=== PATIENT | female | born 1990 | race Caucasian/White ===

== ENCOUNTER 2017-08-04 16:47 | Emergency (ER) | payer SELFPAY ==
--- NOTE | 2017-08-04 17:37 | ER Document Report ---
ED Psych Disorder / Suicide - General Chief Complaint: Psych Problem Stated Complaint: PSYCH EVAL Time Seen by Provider: 08/04/17 17:35 Notes: The patient is a 27-year-old female, past medical history depression, IV heroin abuser, presents on an IVC filled out by her parents. IVC states that patient would rather than stop abusing drugs. Patient denies current SI or HI. She says that her parents are trying to keep her in [place], even though she is a plane ticket to [place] in a few days for her to begin a new life. Patient denies difficulty breathing, nausea, vomiting, fevers, chest pain, shortness of breath, back pain or headache. TRAVEL OUTSIDE OF THE [place] IN LAST 30 DAYS: No - Related Data Allergies/Adverse Reactions: No Known Allergies Allergy (Unverified 03/16/11 11:05) Past Medical History - General Information source: Patient, Law Enforcement - Social History Smoking Status: Current Every Day Smoker Frequency of alcohol use: None Drug Abuse: Heroin, Prescription drugs Family History: Reviewed & Not Pertinent Pulmonary Medical History: Reports: Hx Asthma Denies: Hx Tuberculosis Past Surgical History: Denies: Hx Appendectomy, Hx Bowel Surgery, Hx Section, Hx Cholecystectomy, Hx Coronary Artery Bypass Graft, Hx Gastric Bypass Surgery, Hx Herniorrhaphy, Hx Hysterectomy, Hx Mastectomy, Hx Pacemaker, Hx Tonsillectomy, Hx Tubal Ligation - Immunizations Hx Diphtheria, Pertussis, Tetanus Vaccination: Yes Review of Systems - Review of Systems Notes: REVIEW OF SYSTEMS: CONSTITUTIONAL: -fevers, -chills EENT: -eye pain, -difficulty swallowing, -nasal congestion CARDIOVASCULAR: -chest pain, -syncope. RESPIRATORY: -cough, -SOB GASTROINTESTINAL: -abdominal pain, -nausea, -vomiting, -diarrhea GENITOURINARY: -dysuria, -hematuria MUSCULOSKELETAL: -back pain, -neck pain SKIN: -rash or skin lesions. HEMATOLOGIC: -easy bruising or bleeding. LYMPHATIC: -swollen, enlarged glands. NEUROLOGICAL: -altered mental status or loss of consciousness, -headache, - neurologic symptoms PSYCHIATRIC: -anxiety, +depression, +drug abuse ALL OTHER SYSTEMS REVIEWED AND NEGATIVE. Physical Exam - Vital signs Vitals: Temp Pulse Resp BP Pulse Ox 98.4 F 85 18 93/55 L 99 08/04/17 18:01 08/04/17 18:01 08/04/17 18:01 08/04/17 18:01 08/04/17 18:01 - Notes Notes: PHYSICAL EXAMINATION: GENERAL: Well-appearing, well-nourished and in no acute distress. Dog at bedside. HEAD: Atraumatic, normocephalic. EYES: Pupils equal round and reactive to light, extraocular movements intact, sclera anicteric, conjunctiva are normal. ENT: nares patent, oropharynx clear without exudates. Moist mucous membranes. NECK: Normal range of motion, supple without lymphadenopathy LUNGS: Breath sounds clear to auscultation bilaterally and equal. No wheezes rales or rhonchi. HEART: Regular rate and rhythm without murmurs ABDOMEN: Soft, nontender, normoactive bowel sounds. No guarding, no rebound. No masses appreciated. EXTREMITIES: Normal range of motion, no pitting or edema. No cyanosis. NEUROLOGICAL: Cranial nerves grossly intact. Normal speech, normal gait. Normal sensory and motor exams. PSYCH: Normal mood, normal affect. Denies SI or HI. SKIN: Warm, Dry, normal turgor, no rashes or lesions noted. Course - Re-evaluation Re-evalutation: 08/04/17 20:24 Pt denies SI or HI upon arrival to the ER. She says that her parents are trying to keep her in [place] and their way is to use an IVC. No signs of heroin intoxication or overdose. She says that she has gone through withdrawal in the past and she feels like she might start withdrawing. Her BP is slightly ow, which she says is normal for her. Will provide her with gabapentin, Zofran and clonidine and have mental health evaluate patient in the morning. - Vital Signs Vital signs: Temp Pulse Resp BP Pulse Ox 98.5 F 77 11 L 76/47 L 98 08/04/17 21:25 08/04/17 21:25 08/04/17 21:25 08/04/17 21:25 08/04/17 21:25 - Laboratory Result Diagrams: 08/04/17 18:34 08/04/17 18:34 Laboratory results interpreted by me: 08/04/17 18:34 Salicylates < 1.0 L Acetaminophen < 10 L - EKG Interpretation by Me EKG shows normal: Sinus rhythm, [place], QRS Complexes, ST-T Waves Additional EKG results interpreted by me: QTc 478 Discharge - Discharge Clinical Impression: Drug abuse
[2017-08-04 18:52] LABS: ABSOLUTE EOSINOPHILS # (AUTO) 0.1 10^3/uL (0.0-0.6); ABSOLUTE LYMPHOCYTES (AUTO) 2.3 10^3/uL (0.5-4.7); ABSOLUTE MONOCYTES (AUTO) 0.7 10^3/uL (0.1-1.4); ABSOLUTE NEUT (AUTO) 4.9 10^3/uL (1.7-8.2); BASOPHILS % (AUTO) 0.3 % (0-2); HEMATOCRIT 37.6 % (36.0-47.0); HEMOGLOBIN 12.5 g/dL (12.0-15.5); LYMPHOCYTES % (AUTO) 28.1 % (13-45); MEAN CORPUSCULAR HGB CONC 33.3 g/dL (32.0-36.0); MEAN CORPUSCULAR VOLUME 87 fl (80-97); PLATELET COUNT 241 10^3/uL (150-450); RED BLOOD COUNT 4.31 10^6/uL (3.72-5.28); RED CELL DISTRIBUTION WIDTH 13.4 % (11.5-14.0); SEGMENTED NEUTROPHILS % (AUTO) 61.6 % (42-78); TOTAL CELLS COUNTED % (AUTO) 100 %
[2017-08-04 19:13] LABS: ALANINE AMINOTRANSFERASE 23 U/L (9-52); ALBUMIN 3.8 g/dL (3.5-5.0); ALKALINE PHOSPHATASE 68 U/L (38-126); ANION GAP 12 (5-19); ASPARTATE AMINO TRANSFERASE 17 U/L (14-36); BILIRUBIN,DIRECT 0.2 mg/dL (0.0-0.4); BILIRUBIN,TOTAL 0.4 mg/dL (0.2-1.3); BLOOD UREA NITROGEN 12 mg/dL (7-20); CALCIUM 9.4 mg/dL (8.4-10.2); CARBON DIOXIDE 26 mmol/L (22-30); CHLORIDE 104 mmol/L (98-107); GLUCOSE 105 mg/dL (75-110); POTASSIUM 4.3 mmol/L (3.6-5.0); SODIUM 141.9 mmol/L (137-145); TOTAL PROTEIN 6.6 g/dL (6.3-8.2)
[2017-08-04 19:14] LABS: ACETAMINOPHEN < 10 ug/mL (10-30); ALCOHOL < 10 mg/dL (NONE DETECTED); SALICYLATE < 1.0 mg/dL (2.0-20.0)
[2017-08-04] MEDS ORDERED: NICOTINE 21 MG/24 HR PATCH.TD24 TD ONE (20:18)
[2017-08-04] MEDS ORDERED: BUPRENORPHINE HCL SL PRN (20:27)
[2017-08-04] MEDS ORDERED: NALOXONE HCL SL PRN (20:27)
[2017-08-04] MEDS ORDERED: [UNRECOGNIZED DRUG - OTHER] SL PRN (20:27)
--- NOTE | 2017-08-04 21:12 | EKG REPORT ---
SEVERITY:- BORDERLINE ECG - SINUS RHYTHM BORDERLINE RIGHT AXIS DEVIATION BORDERLINE PROLONGED QT INTERVAL : Confirmed by: Lianet Dixon 04-Aug-2017 21:11:37
[2017-08-04] MEDS ORDERED: DIPHENHYDRAMINE HCL 50 MG CAPSULE PO PRN (21:53)
[2017-08-04] MEDS ORDERED: CLONIDINE HCL 0.1 MG TABLET PO SCH (22:00)
[2017-08-04] MEDS ORDERED: MIRTAZAPINE 15 MG TABLET PO SCH (22:00)
[2017-08-04] MEDS ORDERED: MELATONIN 5 MG TABLET PO SCH (22:00)
[2017-08-04] MEDS ORDERED: (PENDING PHARMACY ID) (Mirtazapine [Mirtazapine] 30 MG) PO SCH (22:00)
[2017-08-04] MEDS: GABAPENTIN 300 MG CAPSULE PO SCH (23:08)
[2017-08-05 00:58] LABS: APPEARANCE,URINE SLIGHTLY-CLOUDY; BILIRUBIN,URINE NEGATIVE (NEGATIVE); COLOR,URINE YELLOW; GLUCOSE, URINE NEGATIVE (NEGATIVE); KETONES,URINE NEGATIVE (NEGATIVE); LEUKOCYTE ESTERASE,URINE NEGATIVE (NEGATIVE); NITRITE,URINE NEGATIVE (NEGATIVE); PROTEIN,URINE NEGATIVE (NEGATIVE); URINE SPECIFIC GRAVITY 1.004; UROBILINOGEN,URINE NEGATIVE mg/dL (<2.0)
[2017-08-05 02:02] LABS: URINE AMPHETAMINES SCREEN NEGATIVE; URINE BARBITURATES SCREEN UNCONFIRMED POSITIVE; URINE BENZODIAZEPINES SCREEN NEGATIVE; URINE COCAINE SCREEN NEGATIVE; URINE MARIJUANA (THC) SCREEN UNCONFIRMED POSITIVE; URINE METHADONE SCREEN NEGATIVE; URINE PHENCYCLIDINE SCREEN NEGATIVE
[2017-08-05] MEDS: GABAPENTIN 300 MG CAPSULE PO SCH (06:18)
[2017-08-05] MEDS ORDERED: VENLAFAXINE HCL 75 MG CAP.SR.24H PO SCH (10:00)
[2017-08-05] MEDS ORDERED: VENLAFAXINE HCL 75 MG PO SCH (10:00)
--- NOTE | 2017-08-05 11:31 | ER Document Report ---
Doctor's Note Notes: 08/05/17 11:29 27-year-old female that was brought in on IVC paperwork from her parents for concerns about heroin abuse. Patient had a report that she stated that she would rather than stop using drugs given her enjoyment of the drugs. Patient denies any active suicidal homicidal ideations. Labs and urine drug screen is recorded. The behavioral health team has seen and evaluated the patient and do not believe that the patient meets criteria for IVC hold. They have discussed this with the mother. They have even called the patient psychological counselor to verify that the patient indeed has an appointment for Thursday in [facility]. Patient denies any pain at this time. We have offered the patient multiple local resources as well. We have explained strict return precautions. Patient is calm and cooperative on my repeat examination. Vital signs show a slightly decreased blood pressure and I have explained to the patient that I do not believe that the patient should continue the clonidine given the low blood pressure. Patient is asymptomatic from the blood pressure denies any lightheadedness, chest pain, weakness or numbness. We will repeat the blood pressure prior to discharge.
[2017-08-05 11:38] VITALS: BP 99/61
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
== END 2017-08-05 11:42 | disposition home or self-care (01) ==
LOC: ER 16:47
DX: F11.20 Opioid dependence, uncomplicated (principal); F12.10 Cannabis abuse, uncomplicated; F13.99 Sedative, hypnotic or anxiolytic use, unspecified with unspecified sedative, hypnotic or anxiolytic-induced disorder; F32.9 Major depressive disorder, single episode, unspecified; F17.200 Nicotine dependence, unspecified, uncomplicated
CPT/HCPCS: 93005; 99284; 36415; 80307 ×4; 84703; 85025; 80053; 81001; 93010; J3490